=== PATIENT | male | born 1965 | race Caucasian/White ===

== ENCOUNTER 2023-12-23 21:27 | Inpatient (IN) | payer BC, SELFPAY ==
[2023-12-23] VITALS (14 sets, daily range): BP systolic 103–170; BP diastolic 72–115
[2023-12-23] MEDS: SOLU-MEDROL PF 125 MG IV (20:23)
[2023-12-23] MEDS: PEPCID 20 MG IV (20:23)
[2023-12-23 20:26] LABS: % Basophils 0.5 % (0-2); % Eosinophils 1.6 % (0-6); % Immature Granulocytes 0.8 % (0-0.5); % Lymphocytes 32.3 % (20.5-51.1); % Monocytes 8.6 % (1.7-9.3); % Neutrophils 56.2 % (42.2-75.2); Absolute Basophils 0.1 10^3/uL (0-0.2); Absolute Eosinophils 0.2 10^3/uL (0-0.7); Absolute Immature Granulocytes 0.1 10^3/uL (0-0.05); Absolute Lymphocytes 4.2 10^3/uL (1.2-3.4); Absolute Monocytes 1.1 10^3/uL (0.1-0.6); Absolute Neutrophils 7.3 10^3/uL (1.4-6.5); Hematocrit 46.9 % (39.0-52.0); Hemoglobin 16.2 g/dL (13.0-18.0); Mean Corp Hgb Conc. 34.5 g/dL (33.0-37.0); Mean Corpuscular Hgb 29.6 pg (27.0-31.0); Mean Corpuscular Volume 85.6 fL (80.0-94.0); Mean Platelet Volume 9.5 fL (7.4-10.4); Nucleated Red Blood Cells % 0 % (-); Platelet Count 277 10^3/uL (130-400); Red Blood Cell Count 5.48 10^6/uL (4.70-6.10); Red Cell Dist. Width 12.8 % (11.5-14.5); White Blood Cell Count 12.9 10^3/uL (4.8-10.8)
[2023-12-23 20:37] LABS: ALT (SGPT) 41 U/L (0-50); AST (SGOT) 31 U/L (17-59); Albumin 4.3 g/dl (3.5-5.0); Alkaline Phosphatase 116 U/L (38-126); Blood Urea Nitrogen 22 mg/dl (9-20); Calcium 9.3 mg/dl (8.4-10.2); Carbon Dioxide 24 mmol/L (22-30); Chloride 100 mmol/L (98-107); Glucose 155 mg/dl (70-99); Potassium 3.8 mmol/L (3.5-5.1); Sodium 134 mmol/L (135-145); Total Bilirubin 1.2 mg/dl (0.2-1.3); Total Protein 7.3 g/dl (6.3-8.2)
--- NOTE | 2023-12-23 20:39 | ED.GENMED ---
History of Present Illness
General
Chief Complaint: Swelling
Source: patient and ambulance crew
Exam Limitations: none
Time Seen by Provider: 12/23/23 20:32
Nursing documentation reviewed up to this point in time: agreed with
Travel History
Have you had any contact with someone who has COVID-19?: No
Do you have any symptoms of coronavirus? Fever > 100 degrees, chills, cough, shortness of breath, sore throat, loss of taste or smell, muscle aches, or headache?: No
History of Present Illness
History of Present Illness:
58-year-old male with a past medical history of hypertension on lisinopril who presents to the emergency room for evaluation of shortness of breath, hoarseness, lip swelling. He reports onset about 30 to 40 minutes prior to arrival. He says that
he had dinner tonight which was some grilled chicken, no new or unusual food intake. About 30 minutes prior to arrival started to notice hoarseness and sensation of hoarseness and shortness of breath, tightness in his throat. He noted significant
swelling of his lips. EMS was called to bring him to the hospital. On their arrival EMS treated with 0.3 mg of IM epinephrine as well as 50 mg of IM Benadryl. No significant improvement. On arrival patient continues to complain of sensation of
swelling/itching in his throat, denies any marked shortness of breath. He denies any itching or hives. Denies any wheezing. Denies any nausea, vomiting, abdominal cramping. He denies any known allergies. He denies similar symptoms in the past.
No family history of angioedema. He is on an HERNÁN inhibitor no recent changes or adjustments.
Past History
Past History
ED Past Medical History: HTN and Other (Previous esophageal meat impaction, COVID, Kidney stones)
ED Past Surgical History: None and Other (Hernia repair)
Social History
Tobacco: Non-smoker
Alcohol: Occasional
Drug: None
Personal:
Living: alone
Employment: Employed
Family History
Family History: Other (Noncontributory); Negative Diabetes, Hypertension or CAD
Review of Systems
Review of Systems
All Other Systems: ROS reviewed and negative except as documented in HPI and ROS
Constitutional: Denies fever
EENT: Reports other (Hoarseness, sensation of throat swelling)
Respiratory: Reports trouble breathing; Denies cough
Cardiac: Denies chest pain or palpitations
ABD/GI: Denies abdominal pain, nausea or vomiting
: Denies flank pain
Musculoskeletal: Denies neck pain or back pain
Skin: Denies itching or rash
Phy Exam
Physical Exam
Physical Exam:
General: Awake, alert, oriented x3; anxious but no acute distress
Head: Normocephalic, atraumatic
Eyes: Conjunctiva normal, pupils equal round and reactive to light bilaterally
Throat: Patient has swelling to the upper and lower lip, tongue swelling and uvular swelling; he has significant hoarseness of his voice but no stridor
Neck: Trachea midline, supple without meningismus
Lungs: Clear to auscultation bilaterally, no wheezing, rales, rhonchi, normal pulse ox, normal respiratory rate
Heart: Tachycardia with regular rhythm, no murmurs, gallops, or rubs
Abd: Soft, non distended, nontender
Neuro: No gross deficits
Skin: no rash or hives
Extremities: No edema in extremities, equal pulses in all extremities
Scores
Heart Failure Risk
Heart Failure Risk Score: Not Applicable
Heart Score for Chest Pain Patients
STEMI patient?: Not applicable
Withdrawal Assessment of Alcohol
Withdrawal Assessment Completed?: Not applicable
Course
Orders/Labs/Results
Orders:
Orders
12/23/23 20:15
Chest X-ray Portable [CR Chest Portable - 1 View] Stat
Comment:
Reason For Exam: edema
Reason Study Needs to be Portable: Patient Unstable
12/23/23 20:17
Complete Blood Count/With Diff Urgent
Comprehensive Metabolic Panel Urgent
12/23/23 20:18
Propofol 1,000,000 Mcg/100 ml [Diprivan] 1,000,000 mcg in 100 ml .ROUTE .STK-MED
12/23/23 20:20
Famotidine [Pepcid] 20 mg .ROUTE .STK-MED ONE
MethylPREDNISolone PF [Solu-Medrol Pf] 125 mg .ROUTE .STK-MED ONE
12/23/23 20:31
Fentanyl Citrate/Pf [Sublimaze] 100 mcg .ROUTE .STK-MED ONE
12/23/23 20:39
Triglycerides Routine
Comment: baseline levels with propofol infusion
FentaNYL INFUSION TITRATE NOW X 1 BAG FentaNYL 1,000 MCG/100 ML [Sublimaze] 1,000 mcg in 100 ml IV NOW
Indication:: Light Sedation
Begin Infusion:: Now
Goal:: pain score </= 1, CPOT 0-2
Maximum dose in mcg/hr:: 300
Continue currently infusing dose and titrate:: Yes
Titration Instructions:: Titrate every 30 minutes if patient exhibits signs of pain or discomfort
Titration Instructions:: (pain score >/= 2, CPOT >/= 3).
Titration Instructions:: Administer bolus dose and increase infusion by 25 mcg/hr.
Taper Instructions:: If pain score at goal for 4 consecutive hours (pain score </= 1, CPOT 0-2)
Taper Instructions:: decrease infusion by 50 mcg/hr every 2 hours.
Taper Instructions:: When dose </= 50 mcg/hr may turn infusion off and consider PRN
Taper Instructions:: intermittent bolus doses only.
Over-sedation Instructions:: If CPOT 0-2 (goal) and RASS -3 to -5 (below goal) decrease sedative by 50%
Over-sedation Instructions:: first. If pain score remains at goal and RASS remains below goal in 1 hour,
Over-sedation Instructions:: decrease opioid infusion by 50%.
Notify provider:: immediately if pt exhibits: chest wall rigidity, hemodynamic instability,
Notify provider:: agitation/pain despite maximum dosing, pain when RASS below goal.
Additional Instructions:: Patient MUST be mechanically ventilated.
Fentanyl Citrate/Pf [Sublimaze] 100 mcg IV NOW STA
Fentanyl Citrate/Pf [Sublimaze] 50 mcg IV [id number] PRN
Propofol INFUSION Titrate NOW X 1 BOTTLE Propofol 1,000,000 Mcg/100 ml [Diprivan] 1,000,000 mcg in 100 ml IV NOW
Indication:: Light Sedation
Begin Infusion:: Now
Goal:: RASS 0 to -2
Maximum dose in mcg/kg/min:: 50
Initial dose based on RASS:: Yes
If RASS is:: +1 or pt hemodynamically unstable (SBP < 90mmHg), initiate at 10 mcg/kg/min
If RASS is:: +2, initiate at 20 mcg/kg/min
If RASS is:: greater than or equal to +3, initiate at 30 mcg/kg/min
Titration Instructions:: Titrate by 5-10 mcg/kg/min every 5 minutes until RASS 0 to -2 achieved.
Taper Instructions:: If RASS is at or below goal for 4 consecutive hours decrease infusion by
Taper Instructions:: 5-10 mcg/kg/min every 2 hours to off.
Over-sedation Instructions:: If CPOT 0-2 (at goal) AND RASS -3 to -5 (below goal) decrease sedative by
Over-sedation Instructions:: 50% first. If pain score remains at goal and RASS remains below goal in
Over-sedation Instructions:: 1 hour, decrease opioid infusion by 50%.
Notify provider:: immediately if patient exhibits signs/symptoms of propofol-related
Notify provider:: infusion syndrome.
Additional Instructions:: Patient MUST be mechanically ventilated and MUST receive analgesia.
Abnormal Lab Results
12/23/23
20:17
WBC 12.9 H 10^3/uL
(4.8-10.8)
Abs Immat Gran (auto) 0.1 H 10^3/uL
(0-0.05)
Absolute Neuts (auto) 7.3 H 10^3/uL
(1.4-6.5)
Absolute Lymphs (auto) 4.2 H 10^3/uL
(1.2-3.4)
Absolute Monos (auto) 1.1 H 10^3/uL
(0.1-0.6)
Immature Gran % 0.8 H %
(0-0.5)
Sodium 134 L mmol/L
(135-145)
BUN 22 H mg/dl
(9-20)
Creatinine 1.5 H mg/dL
(0.7-1.3)
Glucose 155 H mg/dl
(70-99)
12/23/23 20:17
12/23/23 20:17
Vital Signs
Initial and Last Documented VS:
Initial Vital Signs
Temp Pulse Resp BP Pulse Ox
37.3 C 112 18 170/115 98
12/23/23 20:11 12/23/23 20:11 12/23/23 20:11 12/23/23 20:11 12/23/23 20:11
Last Documented Vital Signs
Temp Pulse Resp BP Pulse Ox
37.3 C 112 18 170/115 98
12/23/23 20:11 12/23/23 20:11 12/23/23 20:11 12/23/23 20:11 12/23/23 20:11
Procedures
Intubations
Procedure completed by: Javier Castellano MD
Method of Intubation: glidescope
Tube size (cm): 7.0
Placement confirmed by: auscutation, CXR, capnography and direct visualization
Breath sounds after intubation: equal
Intubation complications: no complications
MDM/Problems Addressed
Differential Diagnosis Includes:
Anaphylaxis, angioedema
MDM/Problems Addressed:
58-year-old male presents for evaluation of sudden onset swelling of the tongue, throat, lips with some sensation of shortness of breath although this seems to be slightly improved on arrival. No pruritus/hives, GI symptoms, wheezing. No known
history of allergies and no new exposures today. He received epinephrine and Benadryl prehospital without improvement. He was given Solu-Medrol and Pepcid on arrival here. His vital signs are significant for hypertension and tachycardia likely
related to anxiety as well as prehospital epinephrine. Physical exam as above. Suspect likely HERNÁN related angioedema. Very concerned for airway swelling given his continued significant hoarseness and obvious swelling of the tongue and uvula on
initial assessment. I had a long discussion with the patient and explained that aggressive airway management would be the best course of action to prevent airway compromise. He indicated understanding and was agreeable to undergoing intubation.
Patient was intubated using RSI as documented in procedure note--notably he did have marked vocal cord edema was only able to pass 7.0 ET tube. Sedated with propofol and fentanyl infusions to maintain deep sedation. Usual labs sent off for
screening. Chest x-ray confirmed ET tube placement. Will admit to ICU for continued management. I discussed with patient's and son to provide update.
Chronic conditions affecting care:
Hypertension requiring treatment with lisinopril�now presenting with HERNÁN angioedema
Acute Exacerbation and/or Progression of Chronic Illness:
Acute hypertensive likely secondary to anxiety and epinephrine�medication for emergent antihypertensives for now
Acute Exacerbation and/or Progression of Chronic Illness: HTN
*Radiology
Radiology exam reviewed: preliminary read by ED provider (ET tube in place)
*Pulse Oximetry
Patient hypoxic: no
*Critical Care Note
Total Time (30-74mins, 75-104mins- exclusive of procedures): 33
comment:
Critical care statement: A total of 33 minutes of critical care time was provided for this patient. This includes management of unstable vital signs, evaluation of the patient at bedside, frequent reassessment, discussion with
consultants/hospitalist, and review of pertinent medical records. This time was separate from time utilized to perform any aforementioned documented procedures
Data Reviewed
Source: patient, family and ambulance crew
Patient Management
Discussion with other providers: Hospitalist (Discussed with hospitalist)
Escalation/DeEscalation of care consider admission/obs:
Admission indicated
ED Attending Note
-
Portions of this chart may have been created with voice recognition software.� Occasional wrong word or��sound alike� substitutions may have occurred due to the inherent limitations of voice recognition software.
Discharge Plan
Departure
Patient Disposition: Admit
Date of Disposition: 12/23/23
Time of Disposition: 20:38
Admit to: ICU
Admit to doctor: Reymundo
Presentation/result/management discussed w/ accepting MD/DO: Hospitalist
Discharge Problem:
Angioedema, Embarrassed airway
Prescriptions:
No Action
lisinopril 20 mg tablet
20 mg PO DAILY
pantoprazole 40 mg tablet,delayed release (DR/EC)
40 mg PO DAILY
Patient Comments:
12/23/2023: Pt being intubated upon arrival, med filled recently 11/19/23 & 12/23/23
Interventions
Interventions:
*Risk Screen - Suicide Last Done: 12/23/23 20:11
*General Assessment Last Done: 12/23/23 20:11
*Neglect/Abuse Screening Last Done: 12/23/23 20:11
*ED COVID-19 Vaccine History Last Done: 12/23/23 20:11
ED- Cardiac Assessment Last Done: 12/23/23 20:15
ED- Pulmonary Assessment Last Done: 12/23/23 20:15
Discharge Date and Time
Print Language: BAHAMIAN
[2023-12-23] MEDS: DIPRIVAN 100 IV (20:48)
[2023-12-23] MEDS: SUBLIMAZE 100 IV (20:50)
[2023-12-23] MEDS: SUBLIMAZE 100 MCG IV (20:53)
--- NOTE | 2023-12-23 21:09 | HPS.HSE ---
Family Physician
-
Family Physician: * NONE
Chief Complaint
-
swelling, hoarseness
History of Present Illness
58-year-old male with past medical history of hypertension, recurrent food impactions, hiatal hernia, Schatzki's ring, esophagitis, kidney stones, presenting with shortness of breath, lip swelling and voice change starting 30 minutes prior to
arrival. History obtained as per ER physician. He stated that he had dinner tonight some grilled chicken without any new unusual foods. He developed hoarseness and sensation of shortness of breath, tightness in his throat and significant swelling
in his lips. EMS was called. He was given 0.3 mg IM epinephrine as well as 50 mg IM Benadryl. No significant improvement. He continued to complain of swelling and itching in his throat. Denied nausea or vomiting or cramping. Denies any
allergies. Denies any similar episodes in the past. No family history of angioedema. He has been on HERNÁN inhibitor without any recent changes or adjustments.
Given significant hoarseness he was intubated with very swollen vocal cords on examination.
Patient's family not available at bedside. Attempted to call spouse without any response.
Medical History
Past Medical History
Past Medical History: Reports Other (hypertension, recurrent food impactions, hiatal hernia, Schatzki's ring, esophagitis, kidney stones)
Past Surgical History: Reports Other (Umbilical hernia repair, vasectomy)
Social History
Unable to obtain full social history at this time due to: Patient Intubation
Family History
Family History: Not pertinent
Allergies / Home Medications
Allergies reflects when Allergies were last updated in [facility].
Home Medications with original date entered in [facility]
Allergy/Medication List:
Allergies
Allergy/AdvReac Type Severity Reaction Status Date / Time
No Known Allergies Allergy Verified 08/09/23 17:25
Home Medications
lisinopril 20 mg tablet 20 mg PO DAILY 12/23/23
pantoprazole 40 mg tablet,delayed release 40 mg PO DAILY 12/23/23
Review of Systems
-
History Source: Physician
A 12 point ROS was completed and negative except as noted: No
Physical Exam
Vital Signs
Vital Signs
Temp Pulse Resp BP Pulse Ox
99.2 F 114 16 153/108 94
12/23/23 20:11 12/23/23 20:45 12/23/23 20:45 12/23/23 20:42 12/23/23 20:34
Physical Exam
General: Well Developed, Well Nourished and No Apparent Distress
HEENT: NormoCephalic, Moist mucous membranes and Atraumatic
Respiratory: Clear
Cardiac: S1/S2 and Regular Rhythm; No Murmur or Rub
GI: Soft, Non Tender, Non Distended and Normal Bowel Sounds; No Organomegaly
Rectal: Deferred by Provider
Musculoskeletal: No Clubbing, No Cyanosis and No Edema
Skin: No Rash
Neuro: Nonfocal/grossly intact
Laboratory Results
-
12/23/23 20:17
12/23/23 20:17
Laboratory Results
Total Bilirubin 1.2 mg/dl (0.2-1.3) 12/23/23 20:17
AST 31 U/L (17-59) 12/23/23 20:17
ALT 41 U/L (0-50) 12/23/23 20:17
Alkaline Phosphatase 116 U/L (38-126) 12/23/23 20:17
Data Reviewed
-
Lab Data: Labs Reviewed by me
Old Records: Reviewed
Impression/Plan
-
IMPRESSION:
PLAN:
# Angioedema/anaphylaxis likley secondary to HERNÁN inhibitor
-Intubated in ER, currently on propofol drip, fentanyl
-Received IM epinephrine, Benadryl, steroid, Pepcid prior to intubation by EMS
-Continue methylprednisolone, pepcid BID
-Discontinue HERNÁN inhibitor
-Check postintubation chest x-ray, ABG
# Acute kidney injury prerenal
-IV fluids
Essential hypertension
-hold lisinopril
History of recurrent food impactions
Hiatal hernia
History of Schatzki's ring
History of esophagitis
-Switch Protonix to IV
History of kidney stones
Full code
DVT prophylaxis�heparin
N.p.o.
[2023-12-23 22:00] LABS: B.E. -1.1 mmol/L; HCO3 24.3 mmol/L (21-28); O2 Saturation % 99.1 % (94-98); PCO2 42 mmHg (35-48); PO2 200 mmHg (83-108); pH 7.37 (7.35-7.45)
--- NOTE | 2023-12-23 22:00 | PTCARENOTE ---
Received patient from ER intubated, sedated, and restrained. Arousable to verbal and tactile stimulation, follows commands, moves all extremities, nods appropriately. Normal sinus, 70s. BP stable, 90s-120s/60s-70s. Palpable radial and pedal pulses
bilaterally. 7.0 ETT, 25 at the lip, on the left side. Thin, clear secretions when suctioned. Mouth care done, repositioned. Lung sounds diminished and coarse throughout. Abdomen soft, round, positive bowel sounds. OG tube in place. #30 condom cath
applied, bladder scanned for 126 mls. Skin intact. CHG bath done. Right and left hand #20 PIV, WNL, patent. Fentanyl, propofol, and NSS gtt ongoing per order. Son at bedside, emotional support provided, went over plan of care with [employer]. Hourly
rounding and patient safety checks ongoing.
[2023-12-23 22:04] LABS: Triglycerides 285 mg/dl (10-149)
[2023-12-23] MEDS: NSS 1000 IV (22:53)
[2023-12-24] VITALS (24 sets, daily range): BP systolic 89–146; BP diastolic 53–95; BMI 38.3
--- NOTE | 2023-12-24 | PTCARENOTE ---
Patient assessment unchanged from previous, mouth care done and repositioned.
[2023-12-24 00:11] LABS: HCO3 23.5 mmol/L (21-28); O2 Saturation % 97.8 % (94-98); PCO2 38 mmHg (35-48); PO2 84 mmHg (83-108)
[2023-12-24 00:14] LABS: O2 Therapy VENT
[2023-12-24] MEDS: DIPRIVAN 100 IV ×9 (00:25→23:05)
[2023-12-24 04:02] LABS: % Basophils 0.3 % (0-2); % Eosinophils 0.2 % (0-6); % Immature Granulocytes 1.5 % (0-0.5); % Lymphocytes 9.7 % (20.5-51.1); % Monocytes 3.2 % (1.7-9.3); % Neutrophils 85.1 % (42.2-75.2); Absolute Immature Granulocytes 0.2 10^3/uL (0-0.05); Absolute Lymphocytes 1.2 10^3/uL (1.2-3.4); Absolute Monocytes 0.4 10^3/uL (0.1-0.6); Absolute Neutrophils 10.6 10^3/uL (1.4-6.5); Hematocrit 42.9 % (39.0-52.0); Hemoglobin 15.2 g/dL (13.0-18.0); Mean Corp Hgb Conc. 35.4 g/dL (33.0-37.0); Mean Corpuscular Hgb 29.7 pg (27.0-31.0); Mean Corpuscular Volume 83.8 fL (80.0-94.0); Mean Platelet Volume 9.7 fL (7.4-10.4); Nucleated Red Blood Cells % 0 % (-); Platelet Count 250 10^3/uL (130-400); Red Blood Cell Count 5.12 10^6/uL (4.70-6.10); White Blood Cell Count 12.5 10^3/uL (4.8-10.8)
[2023-12-24] MEDS: ATIVAN 1 MG IV (04:06)
[2023-12-24] MEDS: SUBLIMAZE 50 MCG IV (04:06)
[2023-12-24 04:08] LABS: INR 1.02; PT 13.5 Sec (11.4-14.6)
[2023-12-24 04:09] LABS: APTT 29.5 Sec (23.4-35.0)
[2023-12-24 04:13] LABS: ALT (SGPT) 40 U/L (0-50); AST (SGOT) 31 U/L (17-59); Albumin 4.1 g/dl (3.5-5.0); Alkaline Phosphatase 83 U/L (38-126); Blood Urea Nitrogen 24 mg/dl (9-20); Calcium 9.1 mg/dl (8.4-10.2); Carbon Dioxide 19 mmol/L (22-30); Chloride 106 mmol/L (98-107); Estimated Creatinine Clearance 109 ml/min; Glucose 160 mg/dl (70-99); Magnesium 2.3 mg/dl (1.6-2.3); Potassium 4.6 mmol/L (3.5-5.1); Sodium 135 mmol/L (135-145); Total Bilirubin 1.2 mg/dl (0.2-1.3); eGFR > 60.00
[2023-12-24 05:07] LABS: B.E. -3.4 mmol/L; HCO3 21.4 mmol/L (21-28); O2 Saturation % 97.2 % (94-98); PCO2 37 mmHg (35-48); PO2 77 mmHg (83-108); pH 7.37 (7.35-7.45)
[2023-12-24 05:09] LABS: O2 Therapy VENT
--- NOTE | 2023-12-24 05:42 | PTCARENOTE ---
Patient more awake, able to communicate via writing on paper. Complaining of soreness in throat, CERTIFIED FRAUD EXAMINER notified, prn ativan and fentanyl given as per order and CERTIFIED FRAUD EXAMINER recommendation. Fentanyl gtt increased as per order. Repositioned, labs sent, mouth
care done. Vomit in OG tube, CERTIFIED FRAUD EXAMINER Susy Pereyra notified, OG tube set to low intermittent suction. Bladder scanned for 376 mls. Hourly rounding and patient safety checks ongoing.
[2023-12-24] MEDS: NSS 1000 IV ×2 (05:51→12:52)
--- NOTE | 2023-12-24 08:00 | PTCARENOTE ---
Received patient intubated, sedated, and restrained. Normal sinus Palpable radial and pedal pulses bilaterally. 7.0 ETT, 25 at the lip, on the left side. Thin, clear secretions when suctioned. Mouth care done, repositioned. Lung sounds diminished
and coarse throughout. Abdomen soft, round, positive bowel sounds. OG tube in place. #30 condom cath applied, bladder scanned >380, straight cath using sterile technique 475 ml john urine Skin intact. Right and left hand #20 PIV, WNL, patent.
Fentanyl, propofol, and NSS gtt ongoing per order. Son at bedside, emotional support provided, went over plan of care with Clin Nurse Spec during rounds, Hourly rounding and patient safety checks ongoing.
--- NOTE | 2023-12-24 08:31 | CON.INTV ---
Consultation
Consultation Request
Date/Time Consultation Requested: 12/24/23
Date/Time Consultation Performed: 12/24/23
Reason for Consultation: critical care
Medical History
-
History of Present Illness:
History obtained from the chart, so history is obtained from the patient as he is able to nod with questions, currently intubated. 58-year-old male with history of hypertension, previous issues with esophageal dysfunction, esophageal meat impaction
in the past, on lisinopril who presents with shortness of breath, hoarseness, lip swelling. Patient apparently was having gross chicken for dinner. Unaware of any unusual ingredients. About 30 minutes after eating, developed hoarseness, tightness
in the throat. When he noted lip swelling, he called EMS. EMS administered intramuscular epinephrine and 50 mg of intramuscular Benadryl. Upon arrival to [facility], afebrile, pulse 112, breathing at 18, blood pressure 170/115, 98%.
Patient was anxious but chest exam was clear, no stridor per records. Given progressive swelling and hoarseness, decision was made to electively intubate for airway protection. Of note vocal cord edema was noted, unable to pass larger tube. 7.0
tube was placed. Patient admitted to ICU for further management 12/24/2023
Presently, patient is without shortness of breath, chest pain, nausea, abdominal pain. He is on mechanical ventilation. He is moving all extremities
.
PMH: Hypertension, history of esophageal dysphagia with recurrent food impaction, hiatal hernia, esophagitis, nephrolithiasis. History of umbilical hernia repair, vasectomy
Past Medical History
Past Medical History: None (See above)
Past Surgical History: None (See above)
Social History
Tobacco: Non-smoker
Alcohol: Occasional
Drug: None
Family History
Family History: Other (Mother with history of leukemia, 1 brother with colon polyps. There is a family history of colon cancer)
Allergies / Home Medications
Allergies
Allergy/AdvReac Type Severity Reaction Status Date / Time
No Known Allergies Allergy Verified 08/09/23 17:25
Home Medications
�Medication �Instructions �Recorded �Confirmed �Last Taken �Type
lisinopril 20 mg tablet 20 mg PO DAILY 12/23/23 12/23/23 12/23/23 History
pantoprazole 40 mg tablet,delayed 40 mg PO DAILY 12/23/23 12/23/23 12/23/23 History
release
Review of Systems
-
Unable to Obtain full review of systems at this time due to: Patient Intubation
Vitals / Labs / Diagnostic Testing
Vital Signs
Temp Pulse Resp BP Pulse Ox
98.8 F 75 16 106/73 96
12/24/23 08:06 12/24/23 06:00 12/24/23 06:00 12/24/23 06:00 12/24/23 06:00
Lab Data
12/24/23 03:49
12/24/23 03:49
Laboratory Results
12/23/23 12/24/23 12/24/23
21:51 00:02 03:49
PT 13.5
INR 1.02
APTT 29.5
pH 7.37 7.40
pCO2 42 38
pO2 200 H 84
HCO3 24.3 23.5
O2 Delivery Level Vent
12/24/23
04:38
PT
INR
APTT
pH 7.37
pCO2 37
pO2 77 L
HCO3 21.4
O2 Delivery Level Vent
Diagnostic Testing:
Physical Exam
-
HEENT: Normocephalic and Anicteric
Cardiovascular: S1/S2, Regular Rhythm, Murmur (n), Rub (n), Peripheral Edema (n) and Calf Tenderness (n)
Respiratory: Wheeze (n), Rales (n), Rhonchi (n), Non-Labored Respirations and Other (ET tube)
GI: Soft, Non Distended and Non Tender
Neurology: Awake, Alert and No Motor Deficits (Moves all extremities)
Skin: Other (No skin rash)
General: Comfortable
Assessment
-
58-year-old male with history of hiatal hernia, esophageal stricture with history of dysphagia, food impaction, gastritis/esophagitis presents with acute onset lip swelling, hoarseness and throat tightness. Patient was given epinephrine, Benadryl
in the field, IV steroids upon arrival to ED. Given progressive symptoms, patient was electively intubated in the ER without difficulty. Admitted for further management 12/24/23
VDRF, intubated 12/23/23
Acute lip swelling/hoarseness/throat tightness
Vocal cord edema upon intubation
Angioedema/anaphylaxis
Leukocytosis
Hyperglycemia
Acute renal insufficiency
Bilateral interstitial changes, per chest x-ray
Conditions present prior to admission
Hypertension
History of recurrent food impaction
Hiatal hernia/esophageal stricture/Schatzki's ring
Obesity
History of nephrolithiasis
Family history of colon cancer
Plan/recommendations
At this time, patient remains critically ill. Fortunately does have a cuff leak, #7.[address]
Chest x-ray with mild interstitial changes
Chest exam is clear
Reviewed ER records. Marked vocal cord edema noted at time of intubation
Moving forward
Continue with volume-cycled ventilation
Airway pressures adequate, plateau pressure 22
Mild interstitial changes per chest x-ray noted
Repeat chest x-ray in a.m.
Maintain sedation with fentanyl/propofol, wean as able
Hyperglycemia noted. Follow
Low-dose sliding scale
Presented with creatinine 1.5, down to 1.1
Follow creatinine, continue IV fluids
Continue steroids
DVT prophylaxis: Lovenox
GI prophylaxis: Continue Pepcid
Reviewed with critical care nursing, respiratory care, pharmacy
Reviewed with primary service
TCCT 31 min
[2023-12-24] MEDS: SOLU-MEDROL PF 40 MG IV ×2 (08:32→19:44)
[2023-12-24] MEDS: HEPARIN 5000 UNITS SC (08:32)
[2023-12-24] MEDS: PEPCID 20 MG IV ×2 (08:32→19:44)
[2023-12-24] MEDS: MIRALAX TUBE (08:33)
[2023-12-24] MEDS: NSS (PRESERVATIVE FREE) 8 ML IV ×2 (08:33→19:45)
[2023-12-24] MEDS: SUBLIMAZE 100 IV ×2 (09:28→18:08)
--- NOTE | 2023-12-24 11:34 | W.PN.HOSP.TC ---
Today's Communication/Plan
-
Vent today
Drips renewed.
Assessment / Plan
Assessment / Plan
58-year-old male with history of hypertension and history of food impactions hiatal hernia present to the hospital with voice change and swelling of the lip and shortness of breath. He had dinner with some grilled chicken patient was given IM
epinephrine, Benadryl and was intubated in the ER.
On examination intubated and sedated
No lip swelling noted
On the ventilator
Cardiovascular system S1-S2 appreciated
No rashes on the skin
Abdomen soft and nontender
# Angioedema/anaphylaxis
Likely secondary to lisinopril
Stop further HERNÁN/ARB and marked as an allergy
Continue Pepcid, methylprednisolone, Benadryl
Drips renewed
CXR reviewed by me
# Hypertension-will start calcium channel blockers if needed
# Mild leukocytosis likely secondary to steroids
# Mild hyperglycemia likely secondary to steroids
# History of recurrent food impactions/hiatal hernia/history of Schatzki's ring/history of esophagitis-PPI
# Acute kidney mgpiqi-xmcoisme-FT fluids, decrease rate
# History of nephrolithiasis
# Obesity per BMI criteria
# DVT prophylaxis-Lovenox
# Full code
Discussed with ICU staff and electrical power engineer
Cc time 31 min
Anticipated Discharge: 24 - 48 hours
Subjective/Interval History
-
Date of Service: December 24, 2023
Objective Data
-
Labs:
Laboratory Results
12/24/23 12/24/23 12/24/23
00:02 03:49 04:38
WBC 12.5 H
Hgb 15.2
Hct 42.9
Plt Count 250
PT 13.5
INR 1.02
APTT 29.5
HCO3 23.5 21.4
Sodium 135
Potassium 4.6
Chloride 106
Carbon Dioxide 19 L
BUN 24 H
Creatinine 1.1
Glucose 160 H
Calcium 9.1
Total Bilirubin 1.2
AST 31
ALT 40
Alkaline Phosphatase 83
Vital Signs:
Vital Signs
Temp Pulse Resp BP Pulse Ox
98.8 F 69 16 105/69 92
12/24/23 08:06 12/24/23 09:45 12/24/23 09:45 12/24/23 09:00 12/24/23 09:45
I&O
12/23/23 12/24/23 12/25/23
06:59 06:59 06:59
Intake Total 1336.6 / 1506.8 851.0 / 851.0
Output Total 475 / 475
Balance 1336.6 / 1506.8 376.0 / 376.0
--- NOTE | 2023-12-24 12:56 | PTCARENOTE ---
Assessment remains unchanged, titrating Propofol, see work list, PT due to void by 1700, condom cath # [address] connected to gravity drainage bag
--- NOTE | 2023-12-24 13:27 | CM ---
CM following re: discharger planning.
Discussed in Rounds, reviewed pt's chart, met with pt. pt's son Sebastián and pt's brent at bedside. pt's son participated in Rounds meeting.
Pt is a 58 year old male, admitted with primary dx of Angioedema/anaphylaxis. per Rounds meeting, pt intubated in ER, remains intubated, possible extubation later today.
Per son, pt lives with brent Ramon in a 2SH, had 2 marriages, has 5 children 10, 12,14, 22 and 31 year of age. Younger children 10, 12 and 14 year of age live with their mother. 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
PCP: pt's brent does not remember the name of PCP and she did state that pt has PCP.
Pharmacy: [facility]
D/C plan; home when medically stable with anticipated no needs. Fiance to transport at discharge.
CM will follow with discharge plan updates as hospitalization progresses
[2023-12-24] MEDS: LOVENOX 40 MG SC (16:32)
--- NOTE | 2023-12-24 17:00 | PTCARENOTE ---
PT still without any urine outpt, bladder scanned for 481, using sterile technique, straight cath for 475 ml of john urine, Propofol increased to 50 mcg Pt awoke and was agitated thrashing in bed,
--- NOTE | 2023-12-24 20:15 | PTCARENOTE ---
Received patient in bed, intubated, sedated, and restrained. Briefly woke up when suctioned, followed commands and nodded appropriately. Restraints in place. Repositioned and mouth care done. Normal sinus, 60s-80s. BP stable, 90s-100s/50s-70s.
Palpable radial and pedal pulses bilaterally, trace edema in bilateral hands. Arms elevated on pillows. 7.0 ETT, advanced to 26 at the lip with respiratory. CO2 23-24. Lung sounds diminished and coarse throughout. Saturating 92%. Clear and thin
secretions. OG tube in place set to low intermittent suction, draining yellow fluid. Irrigated with NSS. No urine output, due to be bladder scanned at 0200. No BM yet this admission. Skin intact. Left hand and right hand #20 PIV, WNL, patent.
Propofol, fentanyl, and NSS gtt infusing per order and protocol. Hourly rounding and patient safety checks ongoing.
[2023-12-25] VITALS (16 sets, daily range): BP systolic 89–180; BP diastolic 55–97; BMI 38.6
--- NOTE | 2023-12-25 00:39 | PTCARENOTE ---
Patient assessment unchanged from previous. Repositioned, mouth care done, blood sugar checked. Hourly rounding and patient safety checks ongoing.
[2023-12-25 00:48] LABS: Glucose - Point of Care 134 mg/dl (70-99)
[2023-12-25] MEDS: DIPRIVAN 100 IV ×4 (01:27→08:42)
[2023-12-25] MEDS: SUBLIMAZE 100 IV (03:19)
--- NOTE | 2023-12-25 03:53 | PTCARENOTE ---
Patient assessment unchanged from previous. Labs sent, repositioned, mouth care done, gown and sheets changed, CHG bed bath done. Bladder scanned at 0200 for 497 mls, straight cathed for 600 mls. Due to void by 0800. Hourly rounding and patient
safety checks ongoing.
[2023-12-25 04:11] LABS: Blood Urea Nitrogen 21 mg/dl (9-20); Calcium 8.7 mg/dl (8.4-10.2); Carbon Dioxide 20 mmol/L (22-30); Chloride 107 mmol/L (98-107); Estimated Creatinine Clearance > 125 ml/min; Glucose 137 mg/dl (70-99); Potassium 4.7 mmol/L (3.5-5.1); Sodium 134 mmol/L (135-145); eGFR > 60.00
[2023-12-25 05:44] LABS: Glucose - Point of Care 134 mg/dl (70-99)
[2023-12-25] MEDS: NSS IV (05:49)
[2023-12-25] MEDS: MIRALAX 17 GRAMS TUBE (07:45)
[2023-12-25] MEDS: PEPCID 20 MG IV (07:45)
[2023-12-25] MEDS: NSS (PRESERVATIVE FREE) 8 ML IV (07:45)
[2023-12-25] MEDS: SOLU-MEDROL PF 40 MG IV (07:45)
--- NOTE | 2023-12-25 07:46 | W.PN.INTV ---
Addendum entered and electronically signed by Yumiko Carballo MD 12/25/23 12:17:
Patient extubated earlier this morning without difficulty. No stridor
Chest exam is clear
Continue with current management
Reviewed my suspicion for sleep disordered breathing. This was reviewed with at bedside
Recommend outpatient sleep disorder workup, weight loss
Okay for transfer out of ICU. We will sign off. Please call with questions
Original Note:
Today's Communication / Plan
Recommendations
CPAP wean, extubate as able
Follow blood sugars
Continue Pepcid, prednisone
Incentive spirometry postextubation
Will check tracheal culture prior to extubation
Requirement for straight catheterization noted. Fentanyl discontinued
Assessment
-
58-year-old male with history of hiatal hernia, esophageal stricture with history of dysphagia, food impaction, gastritis/esophagitis presents with acute onset lip swelling, hoarseness and throat tightness. Patient was given epinephrine, Benadryl
in the field, IV steroids upon arrival to ED. Given progressive symptoms, patient was electively intubated in the ER without difficulty. Admitted for further management 12/24/23
VDRF, intubated 12/23/23
Acute lip swelling/hoarseness/throat tightness
Vocal cord edema upon intubation
Angioedema/anaphylaxis
Leukocytosis
Hyperglycemia
Acute renal insufficiency
Bilateral interstitial changes, per chest x-ray
Conditions present prior to admission
Hypertension
History of recurrent food impaction
Hiatal hernia/esophageal stricture/Schatzki's ring
Obesity
History of nephrolithiasis
Family history of colon cancer
Plan/recommendations
At this time, patient remains critically ill. Fortunately does have a cuff leak, #7.[address]
Chest x-ray with mild interstitial changes
Increase secretions noted
Reviewed ER records. Marked vocal cord edema noted at time of intubation
Moving forward
Transition to CPAP wean
Repeat x-ray with mild right basilar atelectasis
Hopefully can extubate later today
Will check cuff leak prior to extubation
Discontinue sedation
Hyperglycemia noted. Follow
Low-dose sliding scale
Presented with creatinine 1.5, down to 0.9
Follow creatinine, continue IV fluids
Continue steroids, transition to oral prednisone, additional few days
Continue Pepcid therapy
DVT prophylaxis: Lovenox
GI prophylaxis: Continue Pepcid
Reviewed with critical care nursing, respiratory care, pharmacy
Reviewed with primary service
TCCT 31 min
Subjective Dataa
Subjective Data
Date of Service:
Date of Service: December 25, 2023
Subjective:
Patient remains critically ill, on mechanical ventilation. He denies shortness of breath, chest pain, nausea. Increased oral secretions noted. Straight cath required overnight
Objective Data
Data Reviewed
Vital Signs / I&O / Oxygen:
Vital Signs
Temp Pulse Resp BP Pulse Ox
97.6 F 59 16 91/62 93
12/25/23 07:39 12/25/23 06:00 12/25/23 06:00 12/25/23 06:00 12/25/23 06:00
Intake and Output
12/24/23 12/25/23 12/26/23
06:59 06:59 06:59
Intake Total 1336.6 / 1506.8 3185.6 / 3185.6
Output Total 1075 / 1075
Balance 1336.6 / 1506.8 2110.6 / 2110.6
SaO2 [A/C] 92
SaO2 93
Physical Exam
General: Comfortable
HEENT: Normocephalic and Anicteric
Cardiovascular: S1-S2, Regular Rhythm, Murmur (n) and Rub (n)
Respiratory: Wheeze (n), Crackles (n), Rhonchi (n), Non-Labored Respirations and ET Tube
GI: Soft, Non Distended (Obese) and Non Tender
Neurology: Awake, Alert and No Motor Deficits
Skin: Cyanosis (n), Jaundice (n) and Other (Sarkar)
Labs/Micro/Reports
Lab Data
12/24/23 03:49
12/25/23 03:38
--- NOTE | 2023-12-25 08:00 | PTCARENOTE ---
Received patient intubated, sedated, and restrained. Normal sinus Palpable radial and pedal pulses bilaterally. 7.0 ETT, 25 at the lip, on the right side. Thin, clear secretions when suctioned. Mouth care done, repositioned. Lung sounds diminished
and coarse throughout. Abdomen soft, round, positive bowel sounds. OG tube in place. bladder scanned 166ml, Skin intact. Right and left hand #20 PIV, WNL, patent. Fentanyl, propofol, and NSS gtt Hourly rounding and patient safety checks ongoing.
--- NOTE | 2023-12-25 10:05 | PTCARENOTE ---
PT extubated to NC 12L, PT assisted x2 OOB to chair, at bedside, PT did admit to drinking, states everyday, PT states not that much, unable to get direct answer, PT states he has never been treated for alcohol withdrawal, PT instructed on
calling for help to get OOB, or help with urinal, and PT agree, call [facility] in reach
[2023-12-25] MEDS: ZOFRAN 4 MG IV ×2 (10:21→13:21)
--- NOTE | 2023-12-25 11:07 | PTCARENOTE ---
PT remained OOB in chairt x 1 hour, with complaints of nausea, Order of Zofran obtained from Dr Carballo, PT continues to feel dizzy I explained that the sedation may be the cause of this, and I explained in detail that he is not to get up by
himself, call [facility] within reach
[2023-12-25 12:05] LABS: Glucose - Point of Care 98 mg/dl (70-99)
--- NOTE | 2023-12-25 12:47 | PTCARENOTE ---
PT downgraded to Med/surg, explained the purpose of IS, PT pulled 2500 consecutively 7 times, sat PT up and gave a sip of water, PT with clear speech, no cough stated name, birthday and name of hospital, PT does still c/o dizziness, explained that
he had a lot of sedation which can stay in our systems for up to 24 hours, report given to Mary CASTRO on 3rd floor
[2023-12-25 13:52] LABS: Magnesium 2.3 mg/dl (1.6-2.3)
--- NOTE | 2023-12-25 13:53 | PTCARENOTE ---
Received 1 time order for Zofran, PT vomited x1, administered as ordered, PT states he feels much better, PT and all belongings transferred to [id number]
[2023-12-25] MEDS: THIAMINE INJECTION 200 MG IV ×2 (14:03→21:29)
[2023-12-25] MEDS: FOLVITE 1 MG PO (14:04)
--- NOTE | 2023-12-25 14:09 | CM ---
CM following re: discharge planning.
Discussed in Rounds, reviewed pt's chart, met with pt.
Pt extubated this morning to 6L NC of O2, doing well and downgraded from ICU level of care.
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
CM consult to assist pt with substance abuse treatment resources noted, pt agrees to meet with [facility] team. A referral to [facility] made, spoke to CHARO Martinez and she will meet with the pt shortly.
D/C plan: home with family and [facility] to follow.
CM will follow with discharge plan updates as hospitalization progresses
--- NOTE | 2023-12-25 14:11 | W.PN.HOSP.TC ---
Addendum entered and electronically signed by Tahir Ornelas MD 12/25/23 14:20:
Patient denies daily alcohol use
He states that he drinks a few times a week
Original Note:
Today's Communication/Plan
-
Wean O2
PPI
speech eval
Assessment / Plan
Assessment / Plan
58-year-old male with history of hypertension and history of food impactions hiatal hernia present to the hospital with voice change and swelling of the lip and shortness of breath. He had dinner with some grilled chicken patient was given IM
epinephrine, Benadryl and was intubated in the ER.
Off vent and seen on the floor
AAO3
feels well.
Cardiovascular system S1-S2 appreciated
No rashes on the skin
Abdomen soft and nontender
# Angioedema/anaphylaxis
Likely secondary to lisinopril
Stop further HERNÁN/ARB and marked as an allergy
Continue Pepcid,Zyrtec, prednisone
Ob/Gyn follow up as OP discussed
Will need to be discharged on an Epi Pen.
# Acute hypoxic respiratory failure secondary to allergic reaction
Also atelectasis
Incentive spirometry encouraged
Wean oxygen as tolerated
# Hypertension-will start Norvasc
# Mild leukocytosis likely secondary to steroids
# Mild hyperglycemia likely secondary to steroids
# History of recurrent food impactions/hiatal hernia/history of Schatzki's ring/history of esophagitis-PPI added
Already on Pepcid
Recent streching by Oct 2023
# Acute kidney [id number]
Stop IVF
# History of nephrolithiasis
# Daily alcohol use-thiamine
Alcohol withdrawal protocol
# Obesity per BMI criteria
# DVT prophylaxis-Lovenox
# Full code
Discussed with
D/w Family at bed side
D/W RN
Anticipated Discharge: Within 24 hours
Subjective/Interval History
-
Date of Service: December 25, 2023
Objective Data
-
Labs:
Laboratory Results
12/25/23
03:38
Sodium 134 L
Potassium 4.7
Chloride 107
Carbon Dioxide 20 L
BUN 21 H
Creatinine 0.9
Glucose 137 H
Calcium 8.7
Vital Signs:
Vital Signs
Temp Pulse Resp BP Pulse Ox
97.4 F 91 12 148/79 95
12/25/23 11:22 12/25/23 12:00 12/25/23 12:00 12/25/23 12:00 12/25/23 13:25
I&O
12/24/23 12/25/23 12/26/23
06:59 06:59 06:59
Intake Total 1336.6 / 1506.8 3185.6 / 3310.8 327.4 / 327.4
Output Total 1075 / 1075 500 / 500
Balance 1336.6 / 1506.8 2110.6 / 2235.8 -172.6 / -172.6
[2023-12-25] MEDS: PROTONIX IV 40 MG IV (15:12)
[2023-12-25] MEDS: NSS (PRESERVATIVE FREE) 10 ML IV (15:13)
[2023-12-25 15:49] LABS: GGTP 80 U/L (15-73); Magnesium 2.2 mg/dl (1.6-2.3); Phosphorus 3.9 mg/dl (2.5-4.5)
[2023-12-25 15:55] LABS: B-Hydroxybutyrate 0.09 mmol/L (0.02-0.27)
--- NOTE | 2023-12-25 16:00 | PTOTSP ---
Speech Therapy Swallowing Assessment
Very limited exam as patient was nauseous with sitting upright and was afraid to take more than a sip of water. Patient tolerated trial with what appeared to be prompt and well coordinated swallow. No coughing or changes in vocal/respiratory
quality. Given strong voice and no obvious resonance changes to suggest pharyngeal narrowing or poor airway protection, feel the patient is at low risk for aspiration.
Recommend
1. Regular solids and Thin liquids as patient tolerates
2. Upright with meals and for 30 minutes afterward.
4. Reflux precautions given history of hiatal hernia and Schatzki's ring
5. ST will check diet tolerance prior to d/c as able.
[2023-12-25] MEDS: NORVASC 10 MG PO (16:07)
[2023-12-25] MEDS: ZYRTEC 10 MG PO (16:07)
[2023-12-25 18:48] LABS: Glucose - Point of Care 92 mg/dl (70-99)
[2023-12-25 18:49] LABS: Urine Albumin Negative (Neg - Trace); Urine Bilirubin Negative (Negative); Urine Character Clear (Clear); Urine Color Yellow; Urine Glucose Negative (Negative); Urine Ketone Negative (Negative); Urine Leukocyte Negative (Negative); Urine Nitrite Negative (Negative); Urine Occult Blood Negative (Negative); Urine Urobilinogen Negative (Neg - 1+)
[2023-12-25] MEDS: LOVENOX 40 MG SC (18:49)
[2023-12-25 19:01] LABS: Amphetamines Negative (Negative); Barbiturates Negative (Negative); Benzodiazepines Positive (Negative); Buprenorphine Negative (Negative); Cocaine Negative (Negative); Marijuana Negative (Negative); Methadone Negative (Negative); Methamphetamines Negative (Negative); Opiates Negative (Negative); Phencyclidine Negative (Negative); Tricyclic Antidepressants Negative (Negative)
[2023-12-25 19:16] LABS: Fentanyl, Urine Positive (Negative)
[2023-12-25] MEDS: PEPCID 20 MG PO (19:50)
[2023-12-25 21:31] LABS: Glucose - Point of Care 90 mg/dl (70-99)
[2023-12-26] MEDS: THIAMINE INJECTION IV ×3 (06:00→21:20)
[2023-12-26 07:27] VITALS: BP 155/81
[2023-12-26 07:56] LABS: Glucose - Point of Care 91 mg/dl (70-99)
[2023-12-26 08:44] LABS: Hematocrit 41.4 % (39.0-52.0); Hemoglobin 13.7 g/dL (13.0-18.0); Mean Corp Hgb Conc. 33.1 g/dL (33.0-37.0); Mean Corpuscular Hgb 29.4 pg (27.0-31.0); Mean Corpuscular Volume 88.8 fL (80.0-94.0); Mean Platelet Volume 9.9 fL (7.4-10.4); Platelet Count 186 10^3/uL (130-400); Red Blood Cell Count 4.66 10^6/uL (4.70-6.10); Red Cell Dist. Width 13.1 % (11.5-14.5); White Blood Cell Count 12.5 10^3/uL (4.8-10.8)
[2023-12-26] MEDS: PROTONIX 40 MG PO (09:32)
[2023-12-26] MEDS: FOLVITE 1 MG PO (09:32)
[2023-12-26] MEDS: NORVASC 10 MG PO (09:32)
[2023-12-26] MEDS: DELTASONE 20 MG PO (09:32)
[2023-12-26] MEDS: ZYRTEC 10 MG PO (09:32)
[2023-12-26] MEDS: PEPCID 20 MG PO ×2 (09:33→20:04)
[2023-12-26 10:48] LABS: Blood Urea Nitrogen 18 mg/dl (9-20); Calcium 8.7 mg/dl (8.4-10.2); Carbon Dioxide 25 mmol/L (22-30); Chloride 104 mmol/L (98-107); Estimated Creatinine Clearance 121 ml/min; Glucose 82 mg/dl (70-99); Potassium 3.9 mmol/L (3.5-5.1); Sodium 139 mmol/L (135-145); eGFR > 60.00
[2023-12-26 12:16] LABS: Glucose - Point of Care 104 mg/dl (70-99)
--- NOTE | 2023-12-26 14:10 | W.PN.HOSP.TC ---
Today's Communication/Plan
-
see bold
Assessment / Plan
Assessment / Plan
Gen: NAD, AAOx3.
Eyes: EOMI, PERRLA, no scleral icterus.
Neck: supple.
CV: RRR, +S1/S2, no m/r/g.
Resp: CTAB, no rales, wheezes, or rhonchi.
Abd: +BS, soft, NT, ND
Skin: No rashes.
Neuro: CN 2-12 intact, non-focal.
Psych: Normal mood and affect.
CXR 12/25/23: Endotracheal tube with tip in trachea approximately 4 cm above the noah. No pneumothorax. Bibasilar opacification at least in part suggesting small bilateral pleural effusions.
Acute hypoxemic respiratory failure due to angioedema/anaphylaxis likely secondary to lisinopril:
-ACEi/ARB marked as an allergy
-intubated on admission, now extubated
-Continue Pepcid/Zyrtec/Prednisone
-Finisher Map And Chart follow up as OP discussed
-Will need to be discharged on an Epi Pen
-currently on 2L NC O2. Instructed nursing to check ambulating pulse ox.
Other problems:
Essential Hypertension: cont Norvasc
Mild leukocytosis and hyperglycemia likely secondary to steroids
h/o recurrent food impactions/hiatal hernia/Schatzki's ring/esophagitis: cont PPI/Pepcid
GAIL, resolved with IVFs
h/o nephrolithiasis
Daily alcohol use: cont thiamine/folate
Obesity due to excess calorie
FULL/Lovenox
Anticipated Discharge: Within 24 hours
Subjective/Interval History
-
Date of Service: December 26, 2023
No new complaints.
Objective Data
-
Labs:
Laboratory Results
12/26/23
06:51
WBC 12.5 H
Hgb 13.7
Hct 41.4
Plt Count 186 D
Sodium 139
Potassium 3.9
Chloride 104
Carbon Dioxide 25
BUN 18
Creatinine 1.0
Glucose 82
Calcium 8.7
Vital Signs:
Vital Signs
Temp Pulse Resp BP Pulse Ox
98 F 89 17 155/81 95
12/26/23 07:27 12/26/23 07:27 12/26/23 07:27 12/26/23 07:27 12/26/23 08:07
I&O
12/25/23 12/26/23 12/27/23
06:59 06:59 06:59
Intake Total 3185.6 / 3310.8 1047.4 / 1047.4
Output Total 1075 / 1075 3175 / 3175
Balance 2110.6 / 2235.8 -2127.6 / -7.6
--- NOTE | 2023-12-26 14:39 | PTCARENOTE ---
93-94% on RA at rest. 88% on RA ambulating, feeling SOB and tachy in 120s. Recovers immediately with rest.
[2023-12-26 15:27] VITALS: BP 159/89
[2023-12-26 16:46] LABS: Glucose - Point of Care 94 mg/dl (70-99)
[2023-12-26] MEDS: LOVENOX 40 MG SC (18:30)
[2023-12-26 21:16] LABS: Glucose - Point of Care 71 mg/dl (70-99)
[2023-12-26 23:30] VITALS: BP 139/96
[2023-12-27] MEDS: THIAMINE INJECTION IV (05:42)
[2023-12-27 07:40] VITALS: BP 157/95
[2023-12-27 08:04] LABS: Glucose - Point of Care 90 mg/dl (70-99)
--- NOTE | 2023-12-27 08:20 | PTCARENOTE ---
pt weaned to RA, ambulated to BR and back remained 94-95% RA
[2023-12-27] MEDS: PROTONIX 40 MG PO (08:29)
[2023-12-27] MEDS: DELTASONE 20 MG PO (08:29)
[2023-12-27] MEDS: ZYRTEC 10 MG PO (08:29)
[2023-12-27] MEDS: NORVASC 10 MG PO (08:29)
[2023-12-27] MEDS: FOLVITE 1 MG PO (08:30)
[2023-12-27] MEDS: PEPCID 20 MG PO (08:30)
[2023-12-27] MEDS: CITROMA 300 ML PO (10:14)
[2023-12-27] MEDS: SENOKOT 17.1999999999999993 MG PO (10:15)
[2023-12-27 11:45] LABS: Glucose - Point of Care 131 mg/dl (70-99)
--- NOTE | 2023-12-27 11:56 | W.PN.HOSP.TC ---
Addendum entered and electronically signed by Tahir Ornelas MD 12/27/23 12:12:
Group C streptococcus inRespiratory culture. Patient does not have any symptoms of pharyngitis. No treatment
Original Note:
Today's Communication/Plan
-
Discharge
Assessment / Plan
Assessment / Plan
CVS: S1-S2 normal
Chest: CTA B/L
Abdomen: Soft, NT / Bowel sounds present
Extremities: No edema, normal pulses
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
Feels well
Off Oxygen
Just had a BM before Mag citrate
CXR 12/25/23: Endotracheal tube with tip in trachea approximately 4 cm above the noah. No pneumothorax. Bibasilar opacification at least in part suggesting small bilateral pleural effusions.
#Acute hypoxemic respiratory failure due to angioedema/anaphylaxis likely secondary to lisinopril:
-ACEi marked as an allergy
-intubated on admission, now extubated
-Continue Pepcid/Zyrtec/Prednisone taper
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
-Will need to be discharged on an Epi Pen
-Off O2
Constipation resolved
Other problems:
Essential Hypertension: cont Norvasc
Mild leukocytosis and hyperglycemia likely secondary to steroids
h/o recurrent food impactions/hiatal hernia/Schatzki's ring/esophagitis: cont PPI/Pepcid
GAIL, resolved with IVFs
h/o nephrolithiasis
Daily alcohol use: cont thiamine/folate
Obesity due to excess calorie
FULL
DVT Prophylaxis -Lovenox
Patient is aware about follow-up needs with an atm manager and also about EpiPen.
Discharge time 31 min
Anticipated Discharge: Today
Subjective/Interval History
-
Date of Service: December 27, 2023
Objective Data
-
Vital Signs:
Vital Signs
Temp Pulse Resp BP Pulse Ox
97.9 F 76 17 157/95 94
12/27/23 07:40 12/27/23 08:29 12/27/23 07:40 12/27/23 08:29 12/27/23 08:15
I&O
12/26/23 12/27/23 12/28/23
06:59 06:59 06:59
Intake Total 1047.4 / 1047.4 2820 / 2820
Output Total 3175 / 3175 600 / 600
Balance -2127.6 / -2127.6 2220 / 2220
--- NOTE | 2023-12-27 12:09 | W.DS.TRANS ---
Addendum entered and electronically signed by Tahir Ornelas MD 12/27/23 12:14:
Dictation- [id number]
Original Note:
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
-
Discharge Instructions:
Discharge Diagnosis/Procedures Allergic reaction likely to lisinopril,
hypertension, acute kidney injury, history of
food impactions , kidney stone
Diet As tolerated
Additional Diets Follow advice from Dr. Huertas
Activity As tolerated
Driving Restrictions As prior to admission
Instructions:
Stand-Alone Forms:
Changes to Home Medications: Yes
Discharge Medications:
DC Medications w/original date entered in [facility]
pantoprazole 40 mg tablet,delayed release 40 mg PO DAILY Gastrointestinal Issue 12/23/23
amlodipine 10 mg tablet 10 mg PO DAILY Blood pressure #30 tabs 12/27/23
cetirizine 10 mg tablet 10 mg PO DAILY Allergies #5 tabs 12/27/23
epinephrine 0.3 mg/0.3 mL injection, auto-injector 0.3 ml IM Q5-15M PRN anaphylaxis #2 ea 12/27/23
famotidine 20 mg tablet 20 mg PO BID Allergies #10 tabs 12/27/23
folic acid 1 mg tablet 1 mg PO DAILY Supplement #10 tabs 12/27/23
prednisone 10 mg tablet 10 mg PO DAILY Allergies #3 tabs 12/27/23
thiamine HCl (vitamin B1) 100 mg tablet 100 mg PO DAILY Supplement #0 tabs 12/27/23
Home Medication Changes
new
amlodipine 10 mg tablet 10 mg PO DAILY Blood pressure #30 tabs 12/27/23
cetirizine 10 mg tablet 10 mg PO DAILY Allergies #5 tabs 12/27/23
epinephrine 0.3 mg/0.3 mL injection, auto-injector 0.3 ml IM Q5-15M PRN anaphylaxis #2 ea 12/27/23
famotidine 20 mg tablet 20 mg PO BID Allergies #10 tabs 12/27/23
folic acid 1 mg tablet 1 mg PO DAILY Supplement #10 tabs 12/27/23
prednisone 10 mg tablet 10 mg PO DAILY Allergies #3 tabs 12/27/23
thiamine HCl (vitamin B1) 100 mg tablet 100 mg PO DAILY Supplement #0 tabs 12/27/23
Stopped Lisinoprol
Pending Results: No
[2023-12-27 12:44] VITALS: BP 166/96
== END 2023-12-27 13:27 | disposition home or self-care (01) | DRG 916 ==
LOC: 3 WEST ACU 21:27
PROVIDERS: Nurse Practitioner Family; ADMITTING PHYSICIAN Hospitalist; ATTENDING PHYSICIAN Hospitalist; CONSULT PHYSICIAN Internal Medicine Critical Care Medicine; EMERGENCY PHYSICIAN Emergency Medicine
PROC: 5A1945Z Respiratory Ventilation, 24-96 Consecutive Hours (ICD-10-PCS; 2023-12-24)
PROC: 0BH17EZ Insertion of Endotracheal Airway into Trachea, Via Natural or Artificial Opening (ICD-10-PCS; 2023-12-24)
DX: T78.3XXA Angioneurotic edema, initial encounter (principal); N17.9 Acute kidney failure, unspecified; T46.4X5A Adverse effect of angiotensin-converting-enzyme inhibitors, initial encounter; I10 Essential (primary) hypertension; K22.2 Esophageal obstruction; E66.9 Obesity, unspecified; N20.0 Calculus of kidney; Z68.38 Body mass index [BMI] 38.0-38.9, adult; K44.9 Diaphragmatic hernia without obstruction or gangrene; Y84.8 Other medical procedures as the cause of abnormal reaction of the patient, or of later complication, without mention of misadventure at the time of the procedure
CPT/HCPCS: 32551; 36600; 43752; 71045; 80048; 80053; 80306; 80307; 81003; 82010; 82805; 82962; 82977; 83735; 84100; 84478; 85025; 85027; 85610; 85730; 87070; 87077; 87147; 87205; 92610; 93005; 94002; 94003; 96365; 96367; 96375; 99291